=== PATIENT | male | born 2000 | race Caucasian/White ===

== ENCOUNTER → 2021-02-15 | Outpatient (CLI) | payer OTHER ==
--- NOTE | 2021-02-15 09:43 | REP ---
INDICATION: fx lower end of left ulna. COMPARISON: None. TECHNIQUE: AP, lateral, bilateral oblique views of the left wrist FINDINGS: No obvious acute fracture or dislocation. Subtle hazy vertical lucencies in the ulna are consistent with the given history of old healed injury. No acute fracture or dislocation. Carpal bones are intact and normal. Surrounding soft tissues are unremarkable. IMPRESSION: No evidence for acute injury. <Electronically signed by Luis Tinajero > 02/15/21 [id number]
== END ==
LOC: M SOG 08:37
PROVIDERS: ATTEND Orthopaedic Surgery Sports Medicine
DX: Z87.828 Personal history of other (healed) physical injury and trauma (principal)

== ENCOUNTER → 2021-02-17 | Outpatient (CLI) | payer OTHER ==
--- NOTE | 2021-02-17 09:55 | REP ---
INDICATION: UP EXTREMITY, W/O CONTRRAST. COMPARISON: None. TECHNIQUE: Axial noncontrast images through the left wrist with coronal and sagittal reformations FINDINGS: There is a subtle oblique/vertical lucency extending from the ulnar articular surface proximally to the level of the metaphysis which demonstrates adjacent sclerosis and is most suggestive of the patient's prior fracture with slow healing. Findings less likely represent acute fracture as the cortex appears relatively intact and without displacement. The surrounding soft tissues are relatively normal. Remainder of the osseous structures of the wrist are intact and normal. IMPRESSION: A somewhat oblique/vertical subtle lucency noted through the distal ulna extending to the articular surface is identified without displacement. Findings are consistent with the given history of prior fracture although subtle re-injury cannot be excluded. <Electronically signed by Luis Tinajero > 02/17/21 [id number]
== END ==
LOC: M RAD 09:11
PROVIDERS: ATTEND Orthopaedic Surgery Sports Medicine
DX: S52.692D Other fracture of lower end of left ulna, subsequent encounter for closed fracture with routine healing (principal)

== ENCOUNTER → 2021-03-11 | Outpatient (CLI) | payer OTHER ==
--- NOTE | 2021-03-11 12:28 | REP ---
INDICATION: FX F/U. COMPARISON: 02/15/2021 TECHNIQUE: AP, lateral, bilateral oblique views of the left wrist FINDINGS: Evaluation is limited by overlying cast material. No displaced or obvious fracture identified. Joint spaces are relatively normal and stable. IMPRESSION: No obvious acute fracture or dislocation. <Electronically signed by Luis Tinajero > 03/11/21 [id number]
== END ==
LOC: M SOG 09:22
PROVIDERS: ATTEND Orthopaedic Surgery Sports Medicine
DX: S52.692D Other fracture of lower end of left ulna, subsequent encounter for closed fracture with routine healing (principal)